=== PATIENT | male | born 1995 | race Caucasian/White ===

== ENCOUNTER 2018-01-30 22:21 | Emergency (ER) | payer OTHER ==
[2018-01-30] MEDS: predniSONE 20 MG TAB PO (22:41)
[2018-01-30] MEDS: ALBUTEROL 0.083% (NEB) 2.5 MG/3 ML AMP HHN (22:48)
[2018-01-30] MEDS: HYDROCODONE/APAP (5/325) TAB PO (22:51)
[2018-01-30] MEDS: IBUPROFEN 600 MG TAB PO (22:51)
== END 2018-01-30 23:33 | disposition home or self-care (01) ==
LOC: FTE 22:21
DX: T59.891A Toxic effect of other specified gases, fumes and vapors, accidental (unintentional), initial encounter (principal); J45.909 Unspecified asthma, uncomplicated; F17.210 Nicotine dependence, cigarettes, uncomplicated
CPT/HCPCS: 94664; 99284

== ENCOUNTER 2018-05-25 01:37 | Emergency (ER) | payer OTHER ==
[2018-05-25] MEDS: LORAZEPAM 2 MG INJ IM (02:54)
== END 2018-05-25 03:35 | disposition home or self-care (01) ==
LOC: E/R 01:37
DX: F10.230 Alcohol dependence with withdrawal, uncomplicated (principal); J45.909 Unspecified asthma, uncomplicated
CPT/HCPCS: 96372; 99284-25